=== PATIENT | male | born 1985 | race Caucasian/White ===

== ENCOUNTER 2020-10-18 14:07 | Emergency (ER) | payer SELFPAY ==
[~2020-10-18] VITALS: Ht 182.9 cm; Wt 99.8 kg
== END 2020-10-18 14:51 | disposition home or self-care (01) ==
LOC: ER 14:24
DX: I10 Essential (primary) hypertension (principal); F41.9 Anxiety disorder, unspecified; F32.9 Major depressive disorder, single episode, unspecified
CPT/HCPCS: 99283